=== PATIENT | male | born 1980 | race Caucasian/White ===

== ENCOUNTER 2018-11-06 18:08 | Emergency (ER) | payer BC ==
[2018-11-06] MEDS ORDERED: Diphtheria,Pertussis(Acell),Tetanus Vaccine 0.5 ML SDV IM ONE (19:17)
[2018-11-06] MEDS ORDERED: Lidocaine 1% 30 ML SDV INJECT ONE (19:17)
--- NOTE | 2018-11-06 19:59 | EDM.PDOC ---
ED HPI GENERAL MEDICAL PROBLEM - General Chief Complaint: Laceration Stated Complaint: HEAD INJURY Time Seen by Provider: 11/06/18 19:54 Source of Information: Reports: Patient History Limitations: Reports: No Limitations - History of Present Illness INITIAL COMMENTS - FREE TEXT/NARRATIVE: cut top of head with post medical delivery driver when it sprang back. denies LOC/N/V - Related Data Allergies Allergy/AdvReac Type Severity Reaction Status Date / Time No Known Allergies Allergy Verified 11/06/18 18:56 Home Meds: Home Meds . [No Known Home Meds] 11/06/18 [History] Past Medical History - Past Health History Medical/Surgical History: Denies Medical/Surgical History Social & Family History - Tobacco Use Smoking Status *Q: Never Smoker Second Hand Smoke Exposure: No - Recreational Drug Use Recreational Drug Use: No - Living Situation & Occupation Living situation: Reports: with Family Occupation: Employed ED ROS GENERAL - Review of Systems Review Of Systems: ROS reveals no pertinent complaints other than HPI. ED EXAM, SKIN/RASH Exam: See Below Exam Limited By: No Limitations General Appearance: Alert, WD/WN, No Apparent Distress Eye Exam: Bilateral Eye: PERRL (pupils ER @ 4mm) Ears: Hearing Grossly Normal Throat/Mouth: Normal Voice, No Airway Compromise Head: Other (2x 2" lac, no O/B) Neck: Supple, Non-Tender Respiratory/Chest: No Respiratory Distress Cardiovascular: Regular Rate, Rhythm GI/Abdominal: Soft, Non-Tender Neurological: Alert, Oriented, Normal Cognition, Normal Gait, No Motor/Sensory Deficits Psychiatric: Normal Affect, Normal Mood Skin: Warm, Dry, Normal Color Location, Skin: Head Lymphatic: No Adenopathy ED SKIN PROCEDURES - Laceration/Wound Repair Head Lac/Wound length In cm: 5 (top of head) Appearance: Subcutaneous, Linear, Clean Anesthetic Type: Local Local Anesthesia - Lidocaine (Xylocaine): 1% Plain Local Anesthetic Volume: 5cc Skin Prep: Providone-Iodine (Betadine) Saline Irrigation (cc's): 20 Exploration/Debridement/Repair: Wound Explored, In a Bloodless Field, No Foreign Material Found Closed with: Sutures Suture Size: 3-0 Suture Type: Nylon, Interrupted Sterile Dressing Applied: None Tetanus Status Addressed: Yes Complications: No Course - Vital Signs Last Recorded V/S: Last Vital Signs Temp 36.6 C 11/06/18 18:51 Pulse 69 11/06/18 18:51 Resp 18 11/06/18 18:51 BP 139/92 H 11/06/18 18:51 Pulse Ox 99 11/06/18 18:51 - Orders/Labs/Meds Orders: Active Orders 24 hr Category Date Time Status Vaccines to be Administered [RC] PER UNIT ROUTINE Care 11/06/18 19:18 Active Meds: Medications Discontinued Medications Generic Name Dose Route Start Last Admin Trade Name Mary PRN Reason Stop Dose Admin Diphtheria/Tetanus/Acell Pertussis 0.5 ml 11/06/18 19:17 11/06/18 19:27 Adacel IM 11/06/18 19:18 0.5 ml .ONCE ONE Administration Lidocaine HCl 30 ml 11/06/18 19:17 11/06/18 19:29 Xylocaine-Mpf 1% INJECT 11/06/18 19:18 30 ml ONETIME ONE Administration Departure - Departure Time of Disposition: 19:58 Disposition: Home, Self-Care 01 Condition: Good Clinical Impression: Scalp laceration Qualifiers: Encounter type: initial encounter Qualified Code(s): S01.01XA - Laceration without foreign body of scalp, initial encounter - Discharge Information Instructions: Sutured Wound Care, [id number] Additional Instructions: 1) keep wound clean dry 2) wound check if looks infected 3) suture removal 10 days - My Orders Last 24 Hours: My Active Orders 11/06/18 19:18 Vaccines to be Administered [RC] PER UNIT ROUTINE - Assessment/Plan Last 24 Hours: My Active Orders 11/06/18 19:18 Vaccines to be Administered [RC] PER UNIT ROUTINE
== END 2018-11-06 20:05 | disposition home or self-care (01) ==
LOC: DL.ED 18:08
DX: S01.01XA Laceration without foreign body of scalp, initial encounter (principal); Z23 Encounter for immunization; W22.8XXA Striking against or struck by other objects, initial encounter
CPT/HCPCS: 12002; 13121; 90471; 90715; 99282-25; J2001